=== PATIENT | male | born 1965 | race Caucasian/White ===

== ENCOUNTER 2019-02-10 09:40 | Observation (INO) | payer BC ==
[~2019-02-10] VITALS: Ht 182.9 cm; Wt 99.3 kg
[2019-02-10] MEDS ORDERED: SODIUM CHLORIDE 0.9% 500ML 500 ML IV STA (09:44)
[2019-02-10] MEDS ORDERED: NITROGLYCERIN 2% OINT 1 GM PKT TOP ONE (09:45)
[2019-02-10 10:05] LABS: BASOPHILS % 0.4 % (0.0-1.0); EOSINOPHILS % 0.1 % (0.0-6.0); HEMATOCRIT 45.8 % (38.2-49.6); HEMOGLOBIN 15.8 g/dL (14.0-18.0); LYMPHOCYTES # (AUTO) 1.2 (1.0-3.2); LYMPHOCYTES % 16.4 % (18.0-39.1); MEAN CORPUSCULAR HGB CONC 34.5 g/dL (31-35); MONOCYTES # (AUTO) 0.8 (0.2-0.8); MONOCYTES % 10.7 % (4.4-11.3); NEUTROPHILS # (AUTO) 5.4 (2.1-6.9); NEUTROPHILS % 72.1 % (38.7-80.0); PLATELET COUNT 233 x10e3/uL (140-360); RED BLOOD COUNT 5.09 x10e6/uL (4.3-5.7); RED CELL DISTRIBUTION WIDTH 12.6 % (11.7-14.4)
[2019-02-10 10:27] LABS: AMPHETAMINES SCREEN,URINE NEGATIVE (NEGATIVE); BENZODIAZEPINES SCREEN,URINE NEGATIVE (NEGATIVE); PHENCYCLIDINE SCREEN,URINE NEGATIVE (NEGATIVE)
--- NOTE | 2019-02-10 10:27 | Diagnostic Imaging Report ---
Examination: CT head without contrast Clinical Indication: Altered mental status. Disoriented. Technique: Transaxial noncontrast images from the skull base through the vertex were obtained. Sagittal and coronal reformatted images were done. Dose modulation, iterative reconstruction, and/or weight based adjustment of the mA/kV was utilized to reduce the radiation dose to as low as reasonably achievable. Comparison: None. Findings: Scalp: No abnormalities. Bones: Intact. No fractures. No blastic or lytic lesions. Brain sulci: Appropriate for patient's age. Ventricles: Normal in size and configuration. No hydrocephalus. . Extra-axial space: No abnormalities. Parenchyma: No masses, hemorrhage, or acute or chronic cortical based vascular insults. Suprasellar region: No abnormalities. Craniocervical junction: The foramen magnum is patent. No Chiari one malformation. Impression: No acute intracranial abnormality. Signed by: Dr. Jana Padron M.D. on 02/10/2019 10:24 AM
[2019-02-10 10:28] LABS: ALANINE AMINOTRANSFERASE 32 IU/L (0-55); ALBUMIN 4.3 g/dL (3.5-5.0); ALBUMIN/GLOBULIN RATIO 1.3 (0.8-2.0); ALKALINE PHOSPHATASE 77 IU/L (40-150); ANION GAP 16.5 mmol/L (8-16); BLOOD UREA NITROGEN 14 mg/dL (7-26); BUN/CREATININE RATIO 15 (6-25); CALCIUM 9.8 mg/dL (8.4-10.2); CARBON DIOXIDE 23 mmol/L (22-29); CHLORIDE 104 mmol/L (98-107); CREATINE KINASE 211 IU/L (30-200); CREATININE, SERUM 0.93 mg/dL (0.72-1.25); EST GLOMERULAR FILTRATION RATE > 60 ML/MIN (60-); GLUCOSE 104 mg/dL (74-118); POTASSIUM 3.5 mmol/L (3.5-5.1); SODIUM 140 mmol/L (136-145)
--- NOTE | 2019-02-10 10:28 | Diagnostic Imaging Report ---
EXAMINATION: CHEST SINGLE (PORTABLE) INDICATION: Shortness of breath COMPARISON: None FINDINGS: TUBES and LINES: EKG leads overlie the chest. LUNGS: The lung volumes are normal. No focal consolidation or pulmonary edema. PLEURA: No pleural effusion or pneumothorax. HEART AND MEDIASTINUM: The cardiomediastinal silhouette is normal in size and contour. BONES AND SOFT TISSUES: No acute fracture or dislocation. UPPER ABDOMEN: No free air under the diaphragm. IMPRESSION: No focal pneumonia or pulmonary edema. Signed by: Hayley Rendon MD on 02/10/2019 10:25 AM
[2019-02-10] MEDS ORDERED: ACETAMINOPHEN 325 MG TAB PO ONE (10:30)
[2019-02-10] MEDS ORDERED: FAMOTIDINE 20 MG/2 ML VIAL IV ONE (10:30)
[2019-02-10] MEDS ORDERED: ASPIRIN 325 MG TAB PO ONE (10:30)
[2019-02-10] MEDS ORDERED: DIPHENHYDRAMINE HCL INJ 50 MG/ML VIAL IV PRN (11:00)
[2019-02-10] MEDS ORDERED: ACETAMINOPHEN 325 MG TAB PO PRN (11:00)
[2019-02-10] MEDS ORDERED: ONDANSETRON HCL INJ 2MG/ML 2ML 2 MG/ML VIAL IV PRN (11:00)
[2019-02-10] MEDS ORDERED: ENALAPRILAT IV INJ 1.25 MG/ML VIAL IV PRN (11:00)
[2019-02-10] MEDS ORDERED: CLONIDINE HCL 0.1 MG TAB PO PRN (11:00)
[2019-02-10] MEDS ORDERED: IBUPROFEN 400 MG TAB PO PRN (11:00)
[2019-02-10] MEDS ORDERED: ZOLPIDEM TARTRATE 5 MG TAB PO PRN (11:00)
--- OUTSIDE RECORDS SUMMARY | 2019-02-10 11:37 | XMS REPORT ---
Author Author [facility] Address Unknown Phone Unavailable Care Team Providers Care Machine Lead Burner Name Role Phone Jimmie ESPINAL Unavailable Unavailable Problems This patient has no known problems. Allergies, Adverse Reactions, Alerts This patient has no known allergies or adverse reactions. Medications This patient has no known medications. Results Test Description Test Time Test Comments Text Results Atomic Results Result Comments CT BRAIN WO 2019-02-10 10:23:00 [place] [address] Patient Name: AVA MAYERS MR #: [id number] : 1965 Age/Sex: 53/M Req #: [id number] Adm Physician: Ordered by: USHA ESPINAL MD Report #: [id number] Location: ER Room/Bed: Procedure: [id number] CT/CT BRAIN WO Exam Date: 02/10/19 Exam Time: 1008 REPORT STATUS: Signed Examination: CT head without contrast Clinical Indication: Altered mental status. Disoriented. Technique: Transaxial noncontrast images from the skull base through the vertex were obtained. Sagittal and coronal reformatted images were done. Dose modulation, iterative reconstruction, and/or weight based adjustment of the mA/kV was utilized to reduce the radiation dose to as low as reasonably achievable. Comparison: None. Findings: Scalp: No abnormalities. Bones: Intact. No fractures. No blastic or lytic lesions. Brain sulci: Appropriate for patient's age. Ventricles: Normal in size and configuration. No hydrocephalus. . Extra- axial space: No abnormalities. Parenchyma: No masses, hemorrhage, or acute or chronic cortical based vascular insults. Suprasellar region: No abnormalities. Craniocervical junction: The foramen magnum is patent. No Chiari one malformation. Impression: No acute intracranial abnormality. Signed by: Dr. Jana Padron M.D. on 02/10/2019 10:24 AM Dictated By: JANA ROSALES MD 1024 Transcribed By: NATALIE on 02/10/19 1024 COPY TO: USHA ESPINAL MD CHEST SINGLE (PORTABLE) 2019-02-10 10:23:00 [place] [address] Patient Name: AVA MAYERS MR #: [id number] : 1965 Age/Sex: 53/M Req #: [id number] Adm Physician: Ordered by: USHA ESPINAL MD Report #: [id number] Location: ER Room/Bed: Procedure: [id number] DX/CHEST SINGLE (PORTABLE) Exam Date: 02/10/19 Exam Time: 1008 REPORT STATUS: Signed EXAMINATION: CHEST SINGLE (PORTABLE) INDICATION: Shortness of breath COMPARISON: None FINDINGS: TUBES and LINES: EKG leads overlie the chest. LUNGS: The lung volumes are normal. No focal consolidation or pulmonary edema. PLEURA: No pleural effusion or pneumothorax. HEART AND MEDIASTINUM: The cardiomediastinal silhouette is normal in size and contour. BONES AND SOFT TISSUES: No acute fracture or dislocation. UPPER ABDOMEN: No free air under the diaphragm. IMPRESSION: No focal pneumonia or pulmonary edema. Signed by: Guy Gutierrez MD on 02/10/2019 10:25 AM Dictated By: GUY GUTIERREZ MD 1025 Transcribed By: NATALIE on 02/10/19 1025 COPY TO: USHA ESPINAL MD
[2019-02-10 11:40] VITALS: BP 136/79
--- NOTE | 2019-02-10 11:40 | NUR ---
PATIENT RECEIVED FROM ER PER WHEEL CHAIR. ALERT AND VERBALLY RESPONSIVE. AMBULATED TO THE RESTROOM BY SELF, NO COMPLAIN VOICED. TELEMETRY B[address] KITCHEN CALLED FOR LUNCH TRAY. ALL PERSONAL ITEMS CLOSE TO PATIENT. ORIENTED TO SURROUNDINGS. BED IN LOWER POSITION, CALL LIGHT AT REACH. INSTRUCTED TO CALL FOR ASSISTANCE NEEDED. FAMILY AT BED SIDE.
[2019-02-10 11:58] VITALS: BP 136/79
[2019-02-10] MEDS: METOPROLOL TARTRATE 25 MG TAB PO SCH ×2 (13:04→19:48)
--- NOTE | 2019-02-10 15:41 | NUR ---
PATIENT SITTING UP IN BED TALKING TO FAMILY MEMBER VISITING, NO COMPLAIN VOICED. CALL LIGHT AT REACH.
[2019-02-10 16:21] VITALS: BP 123/79
[2019-02-10] MEDS: FAMOTIDINE 20 MG/2 ML VIAL IV SCH (17:26)
[2019-02-10 19:11] LABS: CREATINE KINASE MB 1.7 ng/mL (0-5.0)
[2019-02-10 20:00] VITALS: BP 137/81
--- NOTE | 2019-02-10 20:00 | NUR ---
Received change of shift report from AM nurse. Walking rounds completed.
--- NOTE | 2019-02-10 22:00 | NUR ---
Patient AAOx3. Denies chest pain or any discomfort at this time. at bedside. Informed patient he is NPO after MN. Patient verbalized understanding.
[2019-02-11] VITALS: BP 126/82
--- NOTE | 2019-02-11 01:18 | Progress Note ---
DATE: 02/10/2019 Cardiology Progress Note REQUESTING PHYSICIAN: Jeremiah Frank MD. REASON FOR CONSULTATION: Chest pain. HISTORY OF PRESENT ILLNESS: This is a 53-year-old man without significant past medical history, and chest pain. 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 He began to feel unsteady on his feet. He subsequently developed left upper chest pain which he described as warmth/pressure-like sensation, 7/10 in severity, associated with diaphoresis and nausea, and later on tingling in his left hand. He denied any shortness of breath, the pain lasted for hours. He did not note any aggravating or alleviating factors. Due to his symptoms, he presented to the ER for further evaluation. REVIEW OF SYSTEMS: 12-point review of systems was performed and is negative except as per HPI. PAST MEDICAL HISTORY: None. PAST SURGICAL HISTORY: 1. Appendectomy. 2. Lens removal secondary to foreign body. ALLERGIES: PLEASE SEE EMR. MEDICATIONS: Please see medication list. SOCIAL HISTORY: Denies tobacco, alcohol, or illicit drugs. FAMILY HISTORY: No history of heart disease in the immediately family. PHYSICAL EXAMINATION: VITAL SIGNS: Temperature 97.2 degrees, pulse 80, respiratory rate 20, blood pressure 136/79, and oxygen saturation 100% on room air. GENERAL: Well-developed and well-nourished man, in no acute distress. Awake and alert. HEENT: Normocephalic and atraumatic. Pupils are equal. No scleral icterus. NECK: Supple. No thyromegaly or cervical lymphadenopathy. No carotid bruits. LUNGS: Clear to auscultation bilaterally. No wheezes or crackles. CARDIOVASCULAR: Normal rate, regular rhythm. No murmur. Normal S1 and S2. ABDOMEN: Soft and nontender. EXTREMITIES: No edema. NEUROLOGIC: Nonfocal exam. LABORATORY DATA: Sodium 140, potassium 3.5, chloride 104, CO2 of 23, BUN 14, and creatinine 0.93. Troponin 0.011. WBCs 7.4, hemoglobin 15.8, hematocrit 45.8, and platelets 233. Drug screen is negative. Chest x-ray no focal pneumonia or pulmonary edema. EKG, normal sinus rhythm. IMPRESSION: 1. Chest pain. 2. Vertigo. RECOMMENDATIONS: Trend cardiac markers to rule out myocardial infarction. Obtain echocardiogram. Given risk factors, plan to proceed with nuclear stress test in the morning. Fasting lipid panel in the morning. Monitor the patient on telemetry while admitted. Thank you for this consult. We will continue to follow. Nika Strong MD ABS/MODL /[id number] SHARDA
--- NOTE | 2019-02-11 02:00 | NUR ---
Blood drawn and sent to lab. Pressure dressing applied. Patient tolerated well.
[2019-02-11 02:53] LABS: CREATINE KINASE MB 1.4 ng/mL (0-5.0)
[2019-02-11 04:00] VITALS: BP 131/86
[2019-02-11 06:52] LABS: CHOL/HDL RATIO 2.7 (3.9-4.7)
--- NOTE | 2019-02-11 07:12 | NUR ---
pt alert resp even and unlabored at this time no distress noted , pt able to make needs known, at bedside.call light in reach.
[2019-02-11] MEDS ORDERED: LISINOPRIL 10 MG TAB PO SCH (09:00)
[2019-02-11] MEDS: FAMOTIDINE 20 MG/2 ML VIAL IV SCH ×2 (09:14→17:11)
[2019-02-11 09:31] VITALS: BP 160/77
[2019-02-11 09:36] VITALS: BP 120/79
--- NOTE | 2019-02-11 11:50 | Progress Note ---
DATE: 02/11/2019 SUBJECTIVE: The patient denies chest pain or shortness of breath. He reports his lightheadedness has resolved. OBJECTIVE: VITAL SIGNS: Temperature 96.7 degrees, pulse 74, respiratory rate 18, blood pressure 120/79, and oxygen saturation 98% on room air. GENERAL: Awake, alert, in no acute distress. LUNGS: Clear to auscultation bilaterally. No wheezes or crackles. CARDIOVASCULAR: Normal rate regular rhythm. No murmur. Normal S1, S2. Abdomen: Soft. Nontender. EXTREMITIES: No edema. CARDIAC MEDICATIONS: 1. Metoprolol tartrate 25 mg p.o. q.12 hours. 2. Lisinopril 10 mg p.o. daily. LABORATORY DATA: Troponin 0.012. TELEMETRY: Sinus bradycardia. IMPRESSION: 1. Chest pain. 2. Vertigo. RECOMMENDATIONS: The patient is ruled out for myocardial infarction with serial cardiac biomarkers. Echocardiogram has been done. We will review images once they are available. We will proceed with nuclear stress test today. Further recommendations to follow. Thank you for this consult. We will continue to follow. Nika Strong MD ABS/MODL /[id number]
[2019-02-11 11:53] LABS: CREATINE KINASE MB 1.8 ng/mL (0-5.0)
[2019-02-11 12:00] VITALS: BP 128/83
[2019-02-11 16:00] VITALS: BP 131/79
--- NOTE | 2019-02-11 16:35 | NUR ---
Visit made by the Spiritual Care Department Pastoral Visitor, Ann Zepeda. PV provided pastoral presence, prayer, hospitality, and supportive listening. Pastoral Visitor informed pt/family of the scope of [employer] and availability. [employer] Spiritual Care Department O: [phone] Pager: [phone] ([phone] number calling from)
--- NOTE | 2019-02-11 18:00 | NUR ---
pt discharged home to follow up with pcp, no c/o c/p, at this time. iv site removed cath tip in place, prescriptions given.
--- NOTE | 2019-02-11 19:57 | Myoview Stress Test ---
DATE OF STUDY: 02/10/2019 18:12:00 Stress Test - Treadmill ONLY PROCEDURE TITLE: Rest/stress single isotope SPECT imaging with exercise stress and gated SPECT imaging. INDICATION: Chest pain. DESCRIPTION OF PROCEDURE: The patient performed treadmill exercise using a Kobi protocol, exercising for 14 minutes and 9 seconds to stage V and completing estimated workload of 14.8 metabolic equivalents (METs). The test was terminated due to target heart rate achieved. The heart rate was 85 beats per minute at rest and increased to 152 beats per minute at peak exercise, which was 90% of the maximum predicted heart rate. The rest blood pressure was 121/86 mmHg and increased to 169/61 mmHg, which is a normal response. The resting electrocardiogram demonstrated normal sinus rhythm. There were no ST-segment changes suggestive of myocardial ischemia. Myocardial perfusion imaging was performed at rest following the injection of 11 mCi of tetrofosmin. At peak exercise, the patient was injected with 32 mCi of tetrofosmin. Gated post-stress tomographic imaging was performed. FINDINGS: The overall quality of study is fair. Left ventricular cavity is noted to be normal size on the rest and stress studies. SPECT images demonstrate a small mild perfusion defect in the inferior wall at stress. Gated SPECT imaging reveals normal myocardial thickening and wall motion. The left ventricular ejection fraction was calculated to be 64%. IMPRESSION: Myocardial perfusion imaging is normal. Overall, left ventricular systolic function was normal without regional wall motion abnormalities. Nika Strong MD ABS/MODL /[id number]
--- NOTE | 2019-03-12 06:58 | Discharge Summary ---
CHIEF COMPLAINT: Sudden onset of left-sided chest discomfort. FINAL DIAGNOSES: Chest pain, hypertension, questionable gastroesophageal reflux disease. DISPOSITION: Home. HOSPITAL COURSE: A 53-year-old male with no known past medical history and currently takes no medications except for Claritin for allergic rhinitis. Brought to the ER with sudden onset of left-sided chest discomfort associated with nausea, diaphoresis, and some altered mental status changes while at work the morning of admission. He has had no similar symptoms in the past. No vomiting. He underwent review and evaluation in the ER. Studies were conducted. Admission was made for evaluation of chest pain, rule out cardiac ischemia, accelerated hypertension. We will be addressing cardiac issues. We will be monitoring and controlling the patient's blood pressure. Requested Cardiology to follow. With admission, the patient was being seen by Dr. Strong, Cardiology regarding his complaints of chest pain. Following her evaluation of the patient and reviewing existing current data, impression was made of chest pain with vertigo. Recommend continuing to review the cardiac enzymes to rule out IA. We will be obtaining an echocardiogram. We will be proceeding with nuclear stress test. Stress test on the patient, review by Dr. Strong, lead to findings of myocardial perfusion imaging to be normal. Overall left ventricular systolic function was normal without regional wall motion abnormalities. From the ER, the patient was placed on the Med-Surg floor, was on a cardiac diet. Vital signs were continued to be watched closely. He was continued on his daily medications. He was given metoprolol tartrate 25 mg p.o. q.12. Medication for assistance for sleep was being given as well. Lisinopril was also being given to maintain BP support 10 mg daily. Lab studies were being watched closely. Cardiac enzymes are being requested for 3 sets. The patient underwent a stress test. The stress test was unremarkable. He was cleared for discharge. IA was ruled out. He was released on 02/11/2019 in good condition. X-ray of the chest shows no focal pneumonia or pulmonary edema. Brain CT shows no acute intracranial abnormality. Laboratory studies show a CBC to be unremarkable. Urine drug screen was negative. Chemistry panel revealed stable electrolytes. Kidney function stable. Glucose 104. First set of cardiac enzymes showed CPK to be slightly elevated at 211 and a CK-MB band and troponin levels were normal. The remaining cardiac enzyme sets were normal. As stated, cardiac was ruled out by studies, and the patient was then released home on 02/11/2019 in good condition. He will continue on a cardiac diet. No equipments or supplies are necessary. No drains or [place] was needed. Activity level as directed by me as well as by Cardiology. Noted that the patient has no current PCP on the demographic form. He was instructed that he may follow up with me within 2 to 3 weeks if he chooses, but he needs to establish a PCP relationship with the physician. He will also be following up with Cardiology outpatient within 2 to 3 weeks. Reporting back to the ER if he be develops any similar symptoms. Prescriptions were given at the time of discharge. He will be continued on his metoprolol and his lisinopril. Dictated by LELE Herrera Jeremiah Frank MD CC/MIREILLE /[id number]
== END 2019-02-11 18:25 | disposition home or self-care (01) ==
LOC: ER 09:40 → ERHOLD 10:59 → MED/SURG3 11:40
DX: R07.89 Other chest pain (principal); K21.9 Gastro-esophageal reflux disease without esophagitis; I10 Essential (primary) hypertension; R42 Dizziness and giddiness
CPT/HCPCS: 36415; 70450; 71045; 78452; 80053; 80061; 80307; 82550 ×2; 82553 ×2; 84484 ×2; 85025; 93005; 93017; 93306; 99284; A9502; G0378 ×2; J7040